=== PATIENT | male | born 1955 | race Caucasian/White ===

== ENCOUNTER 2017-03-07 08:18 | Emergency (ER) | payer BC ==
[~2017-03-07] VITALS: Ht 165.1 cm; Wt 72.6 kg
[~2017-03-07 08:18] MED LIST: FLOMAX0.4 MG PO; NORCO 5-325 TA1 EACH PO; PERCOCET 5-3251 EACH PO; PLAVIX75 MG PO; ZOFRAN ODT4 MG SL
[2017-03-07] MEDS ORDERED: SIMVASTATIN40 MG PO (10:13)
[2017-03-07] MEDS ORDERED: CETAPHIL1 EACH TOP (10:13)
[2017-03-07] MEDS ORDERED: METOPROLOL TART50 MG PO (10:13)
--- NOTE | 2017-03-07 11:45 | EKG ---
[facility] [address] [place], [place] [address] Signed Sinus rhythm with frequent premature ventricular complexes and premature atrial complexes Inferior infarct , age undetermined Anterior injury pattern ACUTE DC / STEMI Abnormal ECG No previous ECGs available Confirmed by ANKUR ISSA MD ([id number]) on 03/07/2017 11:44:59 AM Electronically Signed By: ANKUR ISSA MD 03/07/17 1145 PATIENT NAME: MARYSEYURY EBER Electrocardiogram DATE OF : 59 PHYSICIAN: ANKUR ISSA MD REPORT #: [id number] REPORT IS CONFIDENTIAL AND NOT TO BE RELEASED WITHOUT AUTHORIZATION
--- NOTE | 2017-03-07 12:20 | NUR ---
ER TEAM CALLED. I WAS IN HOUSE WITH SORT OPERATIONS SUPERVISORARMANI HANKINS. WE BOTH RESPONDED TO CALL. WE FOUND PT'S MATIAS, ALONG WITH SON ASHANTI ON PHONE TRYING TO REACH HIS BRO AT WORK. RIGHT BY PT'S SIDE, ALMOST GETTING IN WAY OF STAFF. ALL THE ER STAFF DID A GREAT JOB OF CARING FOR PT, AND ALLOWING HIS IN WITH THEM. SHE WAS NOT GOING TO LEAVE HIS SIDE, AND FOR US TO TRY WOULD HAVE CAUSED A SCENE. STAFF SEEMED TO SENSE THIS WELL. [facility] WAS ON THE WAY, SON ASHANTI SEEMED EVEN THOUGH IN [employer]HS[employer]OL CONTROLLING HIS EMOTIIONS. THIS APPEARED TO HELP HIS MOTHER. BRO. MARYCRUZ ARRIVED FROM , WAS EMOTIONAL AND UPSET AND ASKED WHAT WAS HAPPENING.MATIAS EXPLAINED, THE BOYS SAID THIS HAS HAPPENED BEFORE. I GAVE THEM A [employer] PACKING LIST, AND STAYED TO GIVE FURTHER ASSISTANCE. ER BACK GRAY CLOTH WASHER CAME AND PULLED MATIAS AWAY AND SAID SHE NEEDED A $250 CO-PAY. THIS WAS POOR TIMING, AND UPSET HER GREATLY WHEN HER IS BEING FLOWN TO ANOTHER HOSPITAL WITH LIFE THREATENING NEEDS. I WILL TALK TO [facility] REGARDING THIS. WAS ABLE TO FLY WITH PT, BOYS LEFT IMMEDIATELY TO GO AND GET THINGS FROM HOME AND HEAD TO [facility]. GOD BLESS THEM
--- NOTE | 2017-03-09 17:24 | EKG ---
[facility] [address] [facility] [place], [place] [address] Signed Sinus bradycardia Nonspecific ST abnormality Abnormal ECG No previous ECGs available Confirmed by ANKUR ISSA MD ([id number]) on 03/09/2017 5:23:58 PM Electronically Signed By: ANKUR ISSA MD 03/09/17 1724 PATIENT NAME: YURY SERRAN Electrocardiogram DATE OF : 59 PHYSICIAN: ANKUR ISSA MD REPORT #: [id number] REPORT IS CONFIDENTIAL AND NOT TO BE RELEASED WITHOUT AUTHORIZATION
== END 2017-03-07 09:15 | disposition short-term general hospital (02) ==
LOC: ED 08:18
DX: I21.3 ST elevation (STEMI) myocardial infarction of unspecified site (principal); Z87.442 Personal history of urinary calculi; I25.2 Old myocardial infarction; I10 Essential (primary) hypertension; Z95.5 Presence of coronary angioplasty implant and graft; Z79.899 Other long term (current) drug therapy
CPT/HCPCS: 71010; 80053; 84484; 85025; 93005; 93010; 96374; 96375; 99291; J1644; J2405; J7030

== ENCOUNTER 2018-06-28 09:13 | Day surgery (SDC) | payer BC ==
[~2018-06-28] VITALS: Ht 165.1 cm; Wt 73.9 kg
[~2018-06-28 09:13] MED LIST changes: +ASPIR-LOW81 MG PO; +CETAPHIL1 EACH TOP; +METOPROLOL TART50 MG PO; +NIACIN1000 MG PO; +SIMVASTATIN40 MG PO
--- NOTE | 2018-06-28 10:59 | NUR ---
06/28/18 [place]9 Christie Hayes 1053- PT INTO PACU. AWAKE WITH STIMULATION.
--- NOTE | 2018-06-29 08:42 | OR ---
[facility] [address] [place], [place] [address] Signed DATE OF OPERATION: 06/28/2018 SURGEON: Dougie Howell MD PREOPERATIVE DIAGNOSES: 1. Screening. 2. Diverticulosis. 3. Internal anal skin tags. POSTOPERATIVE DIAGNOSES: 1. Moderate sigmoid diverticulosis. 2. Pruritus ani. 3. Moderate internal anal skin tags x3. 4. Short colon length (80 cm). 5. Minimal external hemorrhoids. PROCEDURE PERFORMED: Colonoscopy without biopsy. ESTIMATED BLOOD LOSS: None. INDICATIONS: Richard is a 62-year-old gentleman, asked to see me for followup colonoscopy. In 2007, he had sigmoid diverticulosis along with some internal anal skin tags. He said he has never had trouble diverticulosis. He has no lower GI complaints. There is no family history of colon cancer or polyps. He did have 2 heart attacks since I have seen him last. He now has two cardiac stents. He maintains himself on aspirin and Plavix. He wanted to expedite his colonoscopy and he has only been off his aspirin and Plavix for a couple of days. He understands that he is at high risk for bleeding. I did review colonoscopy with him in the office. He understands the nature of the test along with the risks including, but not limited to gas bloating, crampy abdominal pain, bleeding, perforation, requiring surgery, and missed diagnosis. He also understands the need for IV conscious sedation. He had expressed understanding and wished to proceed. PROCEDURE NOTE: Richard was taken into our endoscopy suite and placed in the left lateral decubitus position. He was given 6 mg of Versed and 100 mcg of fentanyl to cover the case. 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 He has one that is Electronically Signed By: DOUGIE HOWELL MD 06/29/18 0842 PATIENT NAME: RICHARD SERRA OPERATIVE REPORT DATE OF : 59 REPORT #: [id number] PHYSICIAN: DOUGIE HOWELL MD PCP: FRANCIE PARR MD REPORT IS CONFIDENTIAL AND NOT TO BE RELEASED WITHOUT AUTHORIZATION [facility] [address] [place], [place] [address] Signed fairly dominant, could be considered a small hemorrhoid. He has good sphincter tone. His prostate is not overly enlarged, but it is a little indurated. The adult colonoscope was introduced and advanced all around into the cecum under direct visualization of camera without difficulty. Richard is 5 foot 5 inches at 163 pounds. We found that his colon is in proportion to his size and it is only 80 cm in length. It easily identified his appendiceal orifice along with the ileocecal valve. His prep was quite good. The scope was slowly withdrawn. We took multiple pictures for photodocumentation. Once again, we can see sigmoid diverticulosis. They are moderate in size, moderate in number, and scattered about. Once in the rectum, the scope had been retroflexed and he has very little in the way of internal hemorrhoid tissue, but he does have 3 moderate-sized internal anal skin tags. After this, the gas was suctioned out and the colonoscope removed. Richard tolerated the procedure quite well. RECOMMENDATIONS: Richard can follow up in 10 years for repeat colonoscopy. He asked that I not talk to his today. Dougie Howell MD [facility] /[id number] cc: MD Dougie Oneill MD Copies: FRANCIE PARR MD, ANDREW L MD ~ Electronically Signed By: DOUGIE HOWELL MD 06/29/18 0842 PATIENT NAME: RICHARD SERRA OPERATIVE REPORT DATE OF : 59 REPORT #: [id number] PHYSICIAN: DOUGIE HOWELL MD PCP: FRANCIE PARR MD REPORT IS CONFIDENTIAL AND NOT TO BE RELEASED WITHOUT AUTHORIZATION
== END 2018-06-28 11:40 | disposition home or self-care (01) ==
LOC: OPS 09:13 → DS 10:30 → OPS 11:40
PROVIDERS: Colon & Rectal Surgery
PROC: 0DJD8ZZ Inspection of Lower Intestinal Tract, Via Natural or Artificial Opening Endoscopic (ICD-10-PCS; principal; 2018-06-28 10:30)
DX: Z12.11 Encounter for screening for malignant neoplasm of colon (principal); K64.4 Residual hemorrhoidal skin tags; K57.30 Diverticulosis of large intestine without perforation or abscess without bleeding; I25.2 Old myocardial infarction; L29.0 Pruritus ani; Z79.02 Long term (current) use of antithrombotics/antiplatelets; Z79.82 Long term (current) use of aspirin; Z79.899 Other long term (current) drug therapy
CPT/HCPCS: 99153; G0500; J2250; J3010

== ENCOUNTER 2024-01-11 10:09 | Emergency (ER) | payer OTHER, MEDICARE ==
[~2024-01-11] VITALS: Ht 165.1 cm; Wt 79.9 kg
[~2024-01-11 10:09] MED LIST changes: +ONDANSETRON ODT4 MG PO
[2024-01-11 11:22] VITALS: BP 108/66
== END 2024-01-11 11:22 | disposition home or self-care (01) ==
LOC: ED 10:09
DX: S93.401A Sprain of unspecified ligament of right ankle, initial encounter (principal); I10 Essential (primary) hypertension; I25.2 Old myocardial infarction; W17.89XA Other fall from one level to another, initial encounter; Z79.899 Other long term (current) drug therapy; Z79.82 Long term (current) use of aspirin; Z79.02 Long term (current) use of antithrombotics/antiplatelets
CPT/HCPCS: 73610; 99283

== ENCOUNTER 2024-02-21 16:54 | Inpatient (IN) | payer OTHER, MEDICARE ==
[~2024-02-21] VITALS: Ht 165.1 cm; Wt 80.1 kg
[~2024-02-21 16:54] MED LIST changes: -ASPIR-LOW81 MG PO; +ASPIRIN EC325 MG PO
[2024-02-21] MEDS ORDERED: SODIUM CHLORIDE 0.9% 1,000 ML IV ONE (17:30)
[2024-02-21 17:33] LABS: BASOPHILS 0.3 % (0-2); HEMOGLOBIN 15.7 g/dL (12.0-18.0); LYMPHOCYTES 5.9 % (24-44); MCH 32.7 (27-36); MONOCYTES 7.5 % (0-12); NEUTROPHILS 86.3 % (39-80); PLATELET COUNT 235 K/uL (140-440); RBC 4.79 M/ul (4.3-5.7); RDW 13.3 (10.5-15.0)
[2024-02-21 17:43] LABS: ALBUMIN 3.8 g/dL (3.4-5.0); ALBUMIN/GLOBULIN RATIO 1.03 (1.1-2.4); ANION GAP 15.5 (7-21); BILIRUBIN, TOTAL 0.6 ng/dL (0.2-1.0); BUN/CREATININE RATIO 12.5 (6.0-28.6); CALCIUM 9.3 mg/dL (8.5-10.1); CREATININE, SERUM 1.12 mg/dL (0.70-1.30); POTASSIUM 3.5 mmol/L (3.5-5.1); PROTEIN, TOTAL 7.5 g/dL (6.4-8.2)
[2024-02-21] MEDS ORDERED: AMP/SULBACTAM SOD 3 GM in SODIUM CHLORIDE 0.9% 100 ML IV ONE (17:45)
[2024-02-21 18:37] LABS: BILIRUBIN, URINE NEGATIVE (negative); BLOOD/HGB, URINE NEGATIVE (Negative); KETONE, URINE NEGATIVE (Negative); LEUK ESTERASE, URINE NEGATIVE (negative); NITRITE, URINE NEGATIVE (negative)
[2024-02-21] MEDS ORDERED: HYDROmorphone HCL 1 MG/ML SYR IV PRN (19:15)
[2024-02-21] MEDS ORDERED: CIPROFLOXACIN/D5W 400 MG IV ONE (19:15)
[2024-02-21] MEDS ORDERED: ondansetron HCL 4 MG/2 ML VIAL IV PRN (19:45)
[2024-02-21] MEDS ORDERED: ACETAMINOPHEN 325 MG TAB PO PRN (19:45)
[2024-02-21] MEDS ORDERED: OXYCODONE HCL 5 MG TAB PO PRN (20:00)
[2024-02-21] MEDS ORDERED: DEXTROSE 5% 100 ML IV ONE (20:09)
[2024-02-21 20:28] VITALS: BP 148/79
--- NOTE | 2024-02-21 20:28 | NUR ---
REPORT RECEIVED FROM ED RN BRENNA IN ED, pt BELONGINGS AND pt TRANSFERRED VIA ED STRETCHER TO [facility] FLOOR ROOM #115, MATIAS ALSO AT BEDSIDE. pt A/OX4, VS COLLECTED. pt ON RA, RR EVEN AND UNLABORED. HR MILDLY TACHY IN LOW 100'S, TEMP 99.3. FRESH ICE WATER, NEW ICE PACK TO RIGHT EAR. EDEMA NOTED TO RIGHT EAR, RED AND WARM TO THE TOUCH. pt REPORTS BEING ELIM IRA-HEARING AID TO LEFT EAR STILL IN PLACE. IV SITES X2 WNL, FLUSHES EASILY AND SALINE LOCKED. IV ABX INFUSING DIRECTED AND PRN PAIN MEDICATION GIVEN FOR REPORTED 10/10 PAIN TO RIGHT EAR-SEE EMAR. REPORT GIVEN TO PRIMARY RN BETO, NOW IN ROOM. CALL LIGHT AND PERSONAL BELONGINGS IN REACH.
[2024-02-21] MEDS ORDERED: MELATONIN 3 MG TAB PO PRN (21:00)
[2024-02-21] MEDS ORDERED: CIPROFLOXACIN HCL/DEXAMETH 7.5 ML HOME.PACK OTIC SCH (21:00)
--- NOTE | 2024-02-21 21:16 | NUR ---
CALL LIGHT ANSWERED, pt ASKING ABOUT USING THE URINAL. PER PRIMARY RN, pt OKAY TO STAND ON HIS OWN AND VOID VIA URINAL. pt EDUCATED ON SAFETY AND TO USE CALL LIGHT AFTER VOIDING TO MEASURE OUTPUT, pt VERBALIZED UNDERSTANDING.
[2024-02-21] MEDS ORDERED: PIPERACILLIN/TAZOBACTAM 3.375 GM in DEXTROSE 5% 100 ML IV SCH (22:00)
[2024-02-21 22:18] VITALS: BP 148/79
--- NOTE | 2024-02-21 22:25 | NUR ---
ADMISSION ASSESSMENT COMPLETED. PT IS KNOWN TO THIS RN, FRIENDS FOR YEARS. PT IS OK HAVING THIS RN HIS NURSE. A/O, [place], WEARS HEARING AIDES LEELEE EARS. PINNA, EXTERNAL CANAL OPENING EDEMATOUS, RED HOT. R SIDE FACE RED AND WARM WELL. LIVES WITH HIS , IS RETIRED. 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 INDENDENT AT HOME, WILL BE SL AFTER ANTIBOTICS. WILL USE URINAL AT BEDSIDE. CALL LIGHT EXPLAINED AND STATES UNDERSTANDING.
--- NOTE | 2024-02-21 23:30 | NUR ---
ROUNDED ON PT, ON BACK, EYES CLOSED, RESP EVEN AN UNLABORED,
[2024-02-22] VITALS (7 sets, daily range): BP systolic 106–140; BP diastolic 63–75
--- NOTE | 2024-02-22 01:17 | NUR ---
CALL LIGHT ANSWERED. PT REQUESTING SOMETHING FOR PAIN. RN NOTIFED. HYDRAULIC BILLET MAKER OBTIANED AND DOCUMENTED VITALS AND I&O. PT ICE WATER REFILLED. PT STATES NO FURTHER NEEDS AT THIS TIME. CALL LIGHT WITHIN REACH AND RN REMAINS IN ROOM.
--- NOTE | 2024-02-22 01:25 | NUR ---
PT COMPLAINS OF 8/10 PAIN RIGHT EAR. STATES THAT THE PAIN WOKE HIM UP, WELL THE PAIN THAT SHOOTS THROUGH HIS RIGHT FOOT, TOE, BURNING STABING LIKE PAIN. FEELS THAT IT IS RELATED TO HIS EAR INFECTION SINCE IT HAS COME ON AFTER. IV PRN MEDICATION ADMINISTERED, WELL FRESH ICE WATER. WELL HEAD PUMPER DID VS, I/O.
--- NOTE | 2024-02-22 02:10 | NUR ---
ROUNDED ON PT, EYES CLOSED, RESP EVEN AND UNLABORED.
--- NOTE | 2024-02-22 04:00 | NUR ---
ROUNDED ON PT. PT WITH EYES CLOSED, RESP EVEN UNLABORED, OCCASSIONAL MOVEMENT OF RIGHT FOOT. NO URINE IN URNIAL.
[2024-02-22 05:25] LABS: BASOPHILS 0.5 % (0-2); EOSINOPHILS 0.3 % (0-6); HEMATOCRIT 42.7 % (35.0-50.0); HEMOGLOBIN 14.5 g/dL (12.0-18.0); LYMPHOCYTES 7.8 % (24-44); MCH 32.6 (27-36); MCHC 33.9 g/dl (30-36); MCV 96.1 fl (81-99); NEUTROPHILS 81.4 % (39-80); PLATELET COUNT 206 K/uL (140-440); RBC 4.45 M/ul (4.3-5.7); RDW 13.5 (10.5-15.0)
--- NOTE | 2024-02-22 05:34 | NUR ---
PT ADMITTED DUE RIGHT EAR INFECTION. EAR HAS REMAINED UNCHANGED, EDEMATOUS OUTER EAR TO INNER EAR, WITH SMALL EAR OPENING. FACE RED, SL SWOLLEN WELL. PT A/O, INDEPENDENT WITH CARES. RECEIVED PAIN MEDICATION THIS SHIFT, USES THE URINAL INDEPENDENTLY, IS ON RA. USES CALL LIGHT, IS CHITIMACHA WITHOUT HIS HEARING AIDE, IS NOT WEARING THE RIGHT ONE.
[2024-02-22 05:35] LABS: ANION GAP 12.3 (7-21); BUN/CREATININE RATIO 9.57 (6.0-28.6); CALCIUM 8.4 mg/dL (8.5-10.1); CREATININE, SERUM 0.94 mg/dL (0.70-1.30); MAGNESIUM 1.7 mg/dL (1.8-2.4); POTASSIUM 3.3 mmol/L (3.5-5.1)
--- NOTE | 2024-02-22 05:51 | NUR ---
SHINGLES ROOFER AND RN OBTAINED VITALS AND I&O. RN REMAINS IN ROOM. CALL LIGHT WITHIN REACH.
--- NOTE | 2024-02-22 06:09 | NUR ---
TYLENOL GIVEN FOR TEMP 100.1, PAIN OF 7/10. PT REPORTED FEELING LIKE HIS FACE IS MORE SWOLLEN, WHICH INDEED IT IS. RIGHT EYE WAS NEARLY SWOLLEN SHUT, COMPARED TO ADMISSION, WITH SL INDURATION ON FOREHEAD WELLING DROPS DOWN ON TO FACE. DENIES AN INCREASE IN PAIN. THINKS THE PAIN ALONG THE JAW IS BETTER, HE RUBS HIS HAND ALONG IT. DENIES ANY SWALLOWING DIFFICULTIES.
[2024-02-22] MEDS ORDERED: POTASSIUM CHLORIDE 10 MEQ TABCR PO ONE (06:45)
[2024-02-22] MEDS ORDERED: MAGNESIUM SULFATE 2 GM/50 ML BAG IV ONE (06:45)
--- NOTE | 2024-02-22 07:14 | NUR ---
Pt report received from MENA Peng. Pt is asleep, supine in bed, breathing is regular, even, and non-labored. White board updated. Pt has ice pack to right side of head/ear. Call light in reach.
--- NOTE | 2024-02-22 07:58 | NUR ---
PATIENT IN BED AT THIS TIME. CALL LIGHT WITHIN REACH, NO FURTHER NEEDS AT THIS TIME.
[2024-02-22] MEDS ORDERED: AMOX TR-K CLV1 EAC1 PO (08:28)
[2024-02-22] MEDS ORDERED: ASPIRIN 81 MG TABEC PO SCH (09:00)
[2024-02-22] MEDS ORDERED: METOPROLOL TARTRATE 50 MG TAB PO SCH (09:00)
[2024-02-22] MEDS ORDERED: CIPROFLOXACIN/D5W 400 MG IV SCH (09:00)
[2024-02-22] MEDS ORDERED: CLOPIDOGREL BISULFATE 75 MG TAB PO SCH (09:00)
[2024-02-22] MEDS ORDERED: ENOXAPARIN SODIUM 40 MG/0.4 ML SYR SUB-Q SCH (09:00)
[2024-02-22] MEDS ORDERED: POTASSIUM CHLORIDE 10 MEQ TABCR ONE (09:08)
[2024-02-22] MEDS ORDERED: MAGNESIUM SULFATE 50 ML IV ONE (09:08)
--- NOTE | 2024-02-22 09:14 | NUR ---
UR CLINICAL REVIEW: [facility] [place] OBSERVATION CRITERIA FOR CELLULITIS [facility]- TRADITIONAL OBS 02/21/24 @ 1942 ORDER MATCHES STATUS AUTH PENDING, WILL SEND CLINICALS, IF REQUESTED, VIA [facility]. PLAN TO DC TO HOME WHEN STABLE. 02/23/24
--- NOTE | 2024-02-22 09:30 | NUR ---
Dr. Cobos requested he be notified when the pt leaves a urine sample.
[2024-02-22] MEDS ORDERED: DESOXIMETASONE15 G2 TOP (09:50)
--- NOTE | 2024-02-22 09:51 | NUR ---
MED REC COMPLETE
--- NOTE | 2024-02-22 10:10 | NUR ---
PT NOT AVAILABLE FOR VISIT. PROVIDED PRAYER.
--- NOTE | 2024-02-22 10:57 | NUR ---
In with pt for hourly rounding. Pt is resting, supine, in bed with ice pack over his eyes. Breathing is regular, even, and non-labored. IVF infusion is complete. No urine specimen as of this time. Call light in reach. IV Site flushed, patent, s/l.
[2024-02-22] MEDS ORDERED: SODIUM CHLORIDE 0.9% 500 ML IV PRN (11:15)
[2024-02-22] MEDS ORDERED: ondansetron HCL 4 MG/2 ML VIAL IV PRN (11:30)
[2024-02-22] MEDS ORDERED: PHARMACY RENAL DOSE ADJUSTMENT 1 DOSE MISC PO SCH (12:00)
[2024-02-22] MEDS ORDERED: CEPHALEXIN MONOHYDRATE 500 MG CAP PO SCH (13:00)
--- NOTE | 2024-02-22 13:00 | NUR ---
Spoke with Pt and his . They deny needs. Pt does not use any DME. denies needs and will assist pt with shopping, cooking, household tasks. They do not have any financial issues. Pt is hard of hearing and cannot hear with out his hearing aids. His face is swollen and painful. Pt has his answer question as his hearing aid are charging. He requests she answer all questions.
--- NOTE | 2024-02-22 13:27 | NUR ---
PATIENT IN BED AT THIS TIME. [facility] PROVIDED PATIENT WITH HOT PACKPER PATIENTS REQUESTED. CALL LIGHT WITHIN REACH, NO FURTHER BEEDS AT THIS TIME.
[2024-02-22] MEDS ORDERED: PIPERACILLIN/TAZOBACTAM 3.375 GM in DEXTROSE 5% 100 ML IV SCH (14:00)
--- NOTE | 2024-02-22 14:55 | NUR ---
In pt room for IV pump alarming, pt is asleep, breathing is regular, even, and non-labored, ice pack on pt's right ear. IV bolus is complete. IV S/L at this time. Call light in reach.
--- NOTE | 2024-02-22 15:16 | NUR ---
PATIENT IN BED AT THIS TIME. CALL LIGHT WITHIN REACH, NO FURTHER NEEDS AT THIS TIME.
[2024-02-22 17:29] LABS: ANION GAP 11.5 (7-21); BUN/CREATININE RATIO 12.24 (6.0-28.6); CREATININE, SERUM 0.98 mg/dL (0.70-1.30); POTASSIUM 4.5 mmol/L (3.5-5.1)
--- NOTE | 2024-02-22 18:30 | NUR ---
PATIENT IN BED AT THIS TIME. VITALS AND I&O'S CHARTED. CALL LIGHT WITHIN REACH, NO FURTHER NEEDS AT THIS TIME.
--- NOTE | 2024-02-22 18:47 | NUR ---
In with pt for P.M. pain med administration per emar. Pt's at bedside. Pt is pleasant, reports pain is still 5 out of 10, feels swelling has increased underneath his eye and his states she thinks it has stopped increasing. Pt states that maybe he scratched his ear on the inside because he has a habit of taking his hearing aid out when it starts to itch his ear and using his fingernail to scratch it. Pt denies any needs at this time. Call light in reach.
--- NOTE | 2024-02-22 19:10 | NUR ---
REPORT RECEIVED FROM ROYER SAN. pt RESTING IN THE BED. ICE PACK PROVIDED. BOARD UPDATED. CALL LIGHT WITHIN REACH
--- NOTE | 2024-02-22 21:05 | NUR ---
SALES PROGRAM COORDINATOR OBTAINED VITALS AND INTAKE NO NEW OUTPUT AT THIS TIME CALL LIGHT WITHIN REACH.
--- NOTE | 2024-02-22 21:35 | NUR ---
ASSESSMENT DONE. IV X2 ASSESSED, WNL. IV ABX INFUSING PER ORDER, SEE MAR. SCHEDULED MEDS ADMINISTERED. pt DENIES ANY OTHER NEEDS AT THIS TIME. CALL LIGHT WITHIN REACH.
--- NOTE | 2024-02-22 23:22 | NUR ---
pt SITTING AT EDGE OF BED USING URINAL. NO OTHER NEEDS AT THIS TIME. CALL LIGHT WITHIN REACH.
[2024-02-23] VITALS (7 sets, daily range): BP systolic 97–116; BP diastolic 62–75
--- NOTE | 2024-02-23 02:05 | NUR ---
pt CALLED FOR IV PUMP ALARMING. PRN PAIN MEDICATION ADMINISTERED FOR 12/26 PAIN. pt DENIES ANY OTHER NEEDS AT THIS TIME. WATER REFRESHED. URINAL EMPTIED.
--- NOTE | 2024-02-23 04:37 | NUR ---
pt RESTING IN THE BED WITH EYES CLOSED. RR EVEN AND UNLABORED. CALL LIGHT WITHIN REACH. URINAL EMPTIED.
[2024-02-23 05:04] LABS: URINE OSMOLALITY 600 mOsm/kg (50-800)
[2024-02-23 05:24] LABS: BASOPHILS 0.3 % (0-2); EOSINOPHILS 0.9 % (0-6); HEMATOCRIT 41.1 % (35.0-50.0); HEMOGLOBIN 14.1 g/dL (12.0-18.0); LYMPHOCYTES 15.5 % (24-44); MCHC 34.3 g/dl (30-36); MCV 96.1 fl (81-99); MONOCYTES 12.6 % (0-12); NEUTROPHILS 70.7 % (39-80); PLATELET COUNT 202 K/uL (140-440); RBC 4.27 M/ul (4.3-5.7); RDW 13.5 (10.5-15.0)
[2024-02-23 05:38] LABS: ANION GAP 12.7 (7-21); BUN/CREATININE RATIO 10.47 (6.0-28.6); CALCIUM 8.6 mg/dL (8.5-10.1); CREATININE, SERUM 1.05 mg/dL (0.70-1.30); MAGNESIUM 2.2 mg/dL (1.8-2.4); POTASSIUM 3.7 mmol/L (3.5-5.1)
--- NOTE | 2024-02-23 06:06 | NUR ---
pt RESTED THROUGH OUT THE NIGHT. PRN PAIN MEDICATION ADMINISTERED WHEN NEEDED. IV ABX INFUSING PER ORDER, SEE MAR.
--- NOTE | 2024-02-23 07:10 | NUR ---
Pt report received from MENA Mcneil. Pt is asleep, supine in bed, breathing regular, even, and non-labored. Call light in reach. White board updated.
--- NOTE | 2024-02-23 08:30 | NUR ---
Pt was discussed in 8:[address] Cobos. feels pts infection and redness on his face has increased in size. He discussed with pharmacy and plans to change antibiotic to Daptomycin today. I spoke with Richard. His face has been marked showing reddened area. He does agree the area is harder now. He would like to discharge as he wants to return to work at [employer]. He then tells me had a discussion with him about the severity of this type of infection. He will do what he needs to do. His next job doesn't start unti the Feb. I discussed with him, it is not a good idea to discharge until his infection shows improvement. Pt agrees. No plan for dc today.
--- NOTE | 2024-02-23 08:30 | NUR ---
Pt was discussed in 8:30 meeting. feels swelling and reddness have increased and hardened on pts R face. Area is now marked. discussed with pharmacy changing pt antibiotic. 1030 Spoke with Richard. He states he feels better. He wants to discharge so he can return to [employer]. He does state discussed the seriousness of his infection with him. He is willing to stay until he shows improvement. He denies any needs. No plan for dc today.
--- NOTE | 2024-02-23 10:05 | NUR ---
In with pt for assessment. Pt is resting in bed, eyes closed, breathing regular, even, and non-labored, with ice pack to the right side of his face/ear. Pt opens his eyes to noises. Pt reports his pain is 7 out of 10 currently and requested pain meds. Pt states that his face doesn't hurt as much as it was yesterday and that he feels like it feels better. I noted that the redness isn't as angry-looking as it was yesterday and it appears as though some of it has receded on the forehead from yesterday. Edges were marked with skin marker per Dr. Cobos's request. When administering the ear drops, I noted the tragus was less swollen than yesterday, allowing me easier access to the ear canal to administer the drops. Pt denies any needs at this time. Side rails up, call light and bedside table in reach.
--- NOTE | 2024-02-23 13:33 | NUR ---
Received a fax from [facility] requesting clinicals a deadline of 02/23/24 at 4:10. Chart copied and faxed to [phone] as UR is not available today.
--- NOTE | 2024-02-23 16:09 | NUR ---
PATIENT IN BED AT THIS TIME. ASSOCIATE ACCOUNT MANAGER WALKED WITH PATIENT ONE LAP AROUND HALLS. PATIENT WANTED TO GO BACK TO BED. CALL LIGHT WITHIN REACH, NO FURTHER NEEDS AT THIS TIME.
--- NOTE | 2024-02-23 16:18 | EKG ---
[facility] [address] [place], [place] [address] Signed Normal sinus rhythm Anteroseptal infarct , age undetermined Abnormal ECG No previous ECGs available Confirmed by Андрей Cobos MD ([id number]) on 02/23/2024 4:18:09 PM Electronically Signed By: АНДРЕЙ COBOS MD 02/23/24 1618 PATIENT NAME: YURY SERRA EBER Electrocardiogram DATE OF : 59 PHYSICIAN: АНДРЕЙ COBOS MD REPORT #: [id number] REPORT IS CONFIDENTIAL AND NOT TO BE RELEASED WITHOUT AUTHORIZATION
--- NOTE | 2024-02-23 21:15 | NUR ---
ASSESSMENT AND VITAL SIGNS DONE. REDNESS WITHIN BOUNDRIES. SCHEDULED MEDICATIONS ADMINISTERED. pt DENIES ANY OTHER NEEDS AT THIS TIME. IV ASSESSED, WNL. pt DENIES ANY NEEDS AT THIS TIME. CALL LIGHT WITHIN REACH.
--- NOTE | 2024-02-23 22:53 | NUR ---
pt RESTING IN THE BED WITH EYES CLOSED. RR EVEN AND UNLABORED. CALL LIGHT WITHIN REACH.
--- NOTE | 2024-02-23 23:24 | NUR ---
PT WALKING LAPS IN BROCK. STOPS AT RN STATION, STATES HE WOULD LIKE A PAIN PILL. INDEX CLERK TO ROOM. PT RATES PAIN 6/10 TO R EAR. PRN ADMINISTERED. SEE EMAR. PT DENIES FURTHER NEEDS AT THIS TIME. CALL LIGHT IN REACH.
[2024-02-24] VITALS (10 sets, daily range): BP systolic 111–134; BP diastolic 66–81
--- NOTE | 2024-02-24 01:27 | NUR ---
pt RESTING IN THE BED WITH EYES CLOSED. RR EVEN AND UNLABORED. CALL LIGHT WITHIN REACH.
--- NOTE | 2024-02-24 03:11 | NUR ---
pt RESTING IN THE BED WITH EYES CLOSED. RR EVEN AND UNLABORED. CALL LIGHT WITHIN REACH.
[2024-02-24 05:12] LABS: BASOPHILS 0.5 % (0-2); EOSINOPHILS 2.2 % (0-6); HEMATOCRIT 41.9 % (35.0-50.0); HEMOGLOBIN 14.5 g/dL (12.0-18.0); LYMPHOCYTES 16.6 % (24-44); MCH 33.5 (27-36); MCHC 34.6 g/dl (30-36); MCV 96.7 fl (81-99); MONOCYTES 12.2 % (0-12); NEUTROPHILS 68.5 % (39-80); PLATELET COUNT 222 K/uL (140-440); RBC 4.33 M/ul (4.3-5.7); RDW 13.4 (10.5-15.0)
[2024-02-24 05:27] LABS: ANION GAP 9.4 (7-21); BUN/CREATININE RATIO 13.46 (6.0-28.6); CALCIUM 8.9 mg/dL (8.5-10.1); CREATININE, SERUM 1.04 mg/dL (0.70-1.30); MAGNESIUM 2.1 mg/dL (1.8-2.4); POTASSIUM 4.4 mmol/L (3.5-5.1)
--- NOTE | 2024-02-24 06:03 | NUR ---
pt RESTED THROUGOUT THE NIGHT. pt INDEPENDENT IN THE RM. IV ABX INFUSED PER ORDER, SEE MAR. REDNESS ON FACE WITHIN BOUNDRIES.
--- NOTE | 2024-02-24 07:03 | NUR ---
REPORT RECEIVED FROM METALLURGICAL TECHNICIAN MENA MITCHELL. PATIENT IS LYING IN BED WITH EYES CLOSED AND RESPIRATIONS ARE EVEN AND UNLABORED. CALL LIGHT AND PERSONAL BELONGINGS ARE WITHIN REACH.
[2024-02-24] MEDS ORDERED: DAPTOmycin 500 MG/10 ML VIAL IV SCH (09:00)
--- NOTE | 2024-02-24 09:04 | NUR ---
0900 MEDICATIONS ADMINISTERED PER THE EMAR. VITAL SIGNS TAKEN AND DOCUMENTED IN THE CHART. PATIENT IS LYING IN BED ALERT AND CALM. DINNER TRAY REMOVED FROM THE PATIENTS ROOM AT THIS TIME. PATIENT STATED NO FURTHER NEEDS. CALL LIGHT AND PERSONAL BELONGINGS ARE WITHIN REACH.
--- NOTE | 2024-02-24 09:40 | NUR ---
PATIENT IS LYING IN BED WITH EYES CLOSED AND RESPIRATIONS ARE EVEN AND UNLABORED. CALL LIGHT AND PERSONAL BELONGINGS ARE WITHIN REACH.
--- NOTE | 2024-02-24 10:33 | NUR ---
FULL ASSESSMENT COMPLETE AND DOCUMENTED IN THE CHART. PATIENT IS ALERT AND ORIENTED TIMES FOUR. PATIENT IS HARD OF HEARING WITH HIS HEARING AIDS AT THE BEDSIDE. PATIENT IS INDEPENDENT IN THE ROOM. PATIENT IS ON ROOM AIR AND LUNG SOUNDS ARE CLEAR BILATERALLY. CARDIAC WITH NORMAL S1 AND S2 ON AUSCULTATION. RADIAL PULSES ARE STRONG BILATERALLY. SENSATION INTACT WITH NO COMPLAINTS OF NUMBNESS AND TINGLING. PATIENT IS ON A REGULAR DIET AND BOWEL TONES ARE ACTIVE IN ALL FOUR QUADRANTS. PATIENT LAST BOWEL MOVEMENT WAS 02/23/24. IV SITE FLUSHED WITH 10 ML NORMAL SALINE AND IS SALINE LOCKED. ZOSYN INFUSION COMPLETE. IV DRESSING IS CLEAN, DRY, AND INTACT. PATIENT WITH PAIN RATED 6/10 ON THE RIGHT SIDE OF THE FACE AND IS REQUESTING PAIN MEDICATION AT THIS TIME. SKIN WITH PEELING, REDNESS, AND SWELLING ON THE RIGHT SIDE OF THE PATIENTS FACE AND FOREHEAD. PATIENT STATED NO FURTHER NEEDS AT THIS TIME. CALL LIGHT AND PERSONAL BELONGINGS ARE WITHIN REACH.
--- NOTE | 2024-02-24 10:55 | NUR ---
PATIENT WITH PAIN RATED 6/10 ON THE RIGHT SIDE OF THE FACE. PRN OXYCODONE ADMINSITERED AT THIS TIME. NEW CUP OF ICE WATER AND ICE PACK GIVEN TO THE PATIENT AT THIS TIME. PATIENT STATED NO FURTHER NEEDS AT THIS TIME. CALL LIGHT AND PERSONAL BELONGINGS ARE WITHIN REACH.
--- NOTE | 2024-02-24 11:06 | NUR ---
DID HRLY ROUNDING ON PT AND PT IS NAPPING RIP LIGHT IS WITHIN REACH.
--- NOTE | 2024-02-24 11:38 | NUR ---
PATIENT IS LYING ON THEIR LEFT SIDE WITH EYES CLOSED AND RESPIRATIONS ARE EVEN AND UNLABORED. PATIENT WITH THE ICE PACK ON THE RIGHT SIDE OF THE FACE. PATIENT STATED NO FURTHER NEEDS AT THIS TIME. CALL LIGHT AND PERSONAL BELONGINGS ARE WITHIN REACH.
--- NOTE | 2024-02-24 12:12 | NUR ---
PATIENT IS SITTING ON THE COUCH WITH HIS GRANDSON. WHEN ASKED BY RN PATIENT STATES HIS PAIN IS 5/10 ON THE RIGHT SIDE OF THE FACE. PATIENT STATED NO FURTHER NEEDS AT THIS TIME. CALL LIGHT AND PERSONAL BELONGINGS ARE WITHIN REACH.
--- NOTE | 2024-02-24 14:11 | NUR ---
PATIENT IS LYING IN BED WITH EYES CLOSED AND RESPIRATIONS ARE EVEN AND UNLABORED. ZOSYN INFUSION IS GOING AT 25 ML/HR. PATIENT STATED NO NEEDS AT THIS TIME. CALL LIGHT AND PERSONAL BELONGINGS ARE WITHIN REACH.
--- NOTE | 2024-02-24 14:51 | NUR ---
PATIENT IS LYING IN BED ON THEIR LEFT SIDE WITH EYES CLOSED AND RESPIRATIONS ARE EVEN AND UNLABORED. PATIENT RATED PAIN "ABOUT A 2" OUT OF 10 WHEN ASKED BY RN. PAIN IS LOCATED ON THE RIGHT SIDE OF FACE AND THE FOREHEAD. PATIENT IS NOT REQUESTING PAIN MEDICATION AT THIS TIME. RIGHT SIDE OF FACE IS RED, WARM, PEELING, AND SWOLLEN. IV SITE WITH ZOSYN INFUSING AT 25 ML/HR. IV SITE IS CLEAN, DRY, AND INTACT. PATIENT STATED NO NEEDS AT THIS TIME. CALL LIGHT AND PERSONAL BELONGINGS ARE WITHIN REACH.
--- NOTE | 2024-02-24 15:20 | NUR ---
PATIENT IS LYING IN BED ON THEIR LEFT SIDE WITH EYES CLOSED AND RESPIRATIONS ARE EVEN AND UNLABORED. CALL LIGHT AND PERSONAL BELONGINGS ARE WITHIN REACH.
--- NOTE | 2024-02-24 16:15 | NUR ---
PATIENT IS LYING IN BED WITH HOB ELEVATED. PATIENT IS SPEAKING WITH A VISITOR SITTING IN A CHAIR AT BEDSIDE. CALL LIGHT AND PERSONAL BELONGINGS ARE WITHIN REACH.
--- NOTE | 2024-02-24 17:21 | NUR ---
PATIENT IS SITTING UPRIGHT IN BED WITH EYES OPEN AND RESPIRATIONS ARE EVEN AND UNLABORED. VITAL SIGNS TAKEN AND DOCUMENTED IN THE CHART. INTAKE AND OUTPUT VALUES DOCUMENTED. IV PUMP INFUSION VALUE CLEARED. PATIENT DOES NOT WANT AN ICE PACK AT THIS TIME WHEN ASKED BY RN. PATIENT RATED PAIN 5/10 IN THE RIGHT SIDE OF THE FACE. PATIENT IS NOT REQUESTING PAIN MEDICATION AT THIS TIME. DINNER TRAY REMOVED AT THIS TIME PER PATIENT REQUEST. PATIENT STATED NO FURTHER NEEDS. CALL LIGHT AND PERSONAL BELONGINGS ARE WITHIN REACH.
--- NOTE | 2024-02-24 18:05 | NUR ---
PATIENT WITH CONCERNS ABOUT THEIR IV SITE IN THE RAC LEAKING. RN FLUSHED THE IV SITE AND CHANGED THE IV DRESSING. NO LEAKING OBSERVED BY RN AT THIS TIME. PATIENT STATED NO FURTHER NEEDS AT THIS TIME. CALL LIGHT AND PERSONAL BELONGINGS ARE WITHIN REACH.
--- NOTE | 2024-02-24 19:32 | NUR ---
PATIENT SITTING UP AT SIDE OF BED, ROUNDING IN ROOM..PATIENT ALERT AND ORIENTED, WHEN DISCUSSED PAIN MANAGEMENT HE SAID HE WOULD LIKE PAIN MEDICATION WITH MEDICATION PASS AND ICE PACK. NOTED IV FLUSHED, NOTED SMALL AMOUNT OF LEAK.
--- NOTE | 2024-02-24 21:47 | NUR ---
PATIENT AMBULATED IN HALLS THEN BACK TO ROOM FOR ABX EAR DROPS AND IV ABX TO INFUSE. HE RPEORTS PAIN IS MILD, PAIN IS BEETER AFTER PAIN MEDICATIONS. HE IS ALERT AND ORIENTED, HE REPORTS HE HOPES TO GET TO GO HOME TOMORROW. HE REPORTS NO FURTHER NEEDS.
[2024-02-25] VITALS (7 sets, daily range): BP systolic 109–131; BP diastolic 66–87
[2024-02-25 05:24] LABS: BASOPHILS 0.8 % (0-2); EOSINOPHILS 3.1 % (0-6); HEMATOCRIT 43.4 % (35.0-50.0); HEMOGLOBIN 14.9 g/dL (12.0-18.0); LYMPHOCYTES 23.3 % (24-44); MCH 32.8 (27-36); MCHC 34.3 g/dl (30-36); MCV 95.8 fl (81-99); MONOCYTES 11.9 % (0-12); NEUTROPHILS 60.9 % (39-80); PLATELET COUNT 254 K/uL (140-440); RBC 4.53 M/ul (4.3-5.7); RDW 13.6 (10.5-15.0)
[2024-02-25 05:38] LABS: ANION GAP 12.2 (7-21); BUN/CREATININE RATIO 17.02 (6.0-28.6); CALCIUM 9.4 mg/dL (8.5-10.1); CREATININE, SERUM 0.94 mg/dL (0.70-1.30); MAGNESIUM 2.3 mg/dL (1.8-2.4); POTASSIUM 4.2 mmol/L (3.5-5.1)
--- NOTE | 2024-02-25 06:24 | NUR ---
PATIENT WALKED IN HALLS AT START OF SHIFT. HE REQUESTED PAIN MEDICATION AT HS, HE HAS DENIED ANY NEEDS SINCE. HE HAS VOIDED 1300ML URINE OUT. ICE PACKS PROVIDED FOR PAIN AND SWELLING/INFLAMMATION. HE HAS BEEN ALERT AND ORIENTED OVER SHIFT. AFEBRILE.
--- NOTE | 2024-02-25 06:31 | NUR ---
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
--- NOTE | 2024-02-25 07:17 | NUR ---
Pt report received from MENA Brewer. Pt is awake, standing, in his room, A&O. Pt reports his pain is about 3 out of 10 at this time in the right side of his face. He states that he feels much better and feels it's not as swollen. Assessment of the right side of his face reveals less "angry" redness, some skin flaking (dry skin), less swelling, more prominent forehead wrinkles than I noted on Monday. Pt denies needs at this time. Call light in reach. White board updated.
--- NOTE | 2024-02-25 19:36 | NUR ---
REPORT RECEIVED FROM DAY SHIFT RN. PT LYING IN BED ALERT AND ORIENTED. WARM BLANKET PROVIDED. NO FURTHER NEEDS. WHITE BOARD UPDATED. CALL LIGHT IN REACH.
--- NOTE | 2024-02-25 21:27 | NUR ---
EVENING ASSESSMENT COMPLETE. SCHEDULED MEDS ADMIN PER EMAR. PT REPORTS RIGHT SIDE FACE PAIN 07/29. PRN FOR PAIN ADMIN PER EMAR. REDNESS AND SWELLING ON RIGHT SIDE OF FACE NOTED. PT REPORTS SX MUCH IMPROVED SINCE ADMISSION. IV ABX INFUSING PER ORDER. VS AND I&O OBTAINED. PT DENIES QUESTIONS OR CONCERNS. CALL LIGHT IN REACH.
--- NOTE | 2024-02-26 00:55 | NUR ---
PT RESTING IN BED WITH EYES CLOSED. RESPIRATIONS EVEN. CALL LIGHT IN REACH.
--- NOTE | 2024-02-26 02:04 | NUR ---
IV PUMP ALARMING. ISSUE RESOLVED. PT UP TO BR TO VOID INDEPENDENTLY. URINAL EMPTIED. BACK TO BED. DENIES PAIN. NO NEEDS AT THIS TIME. CALL LIGHT IN REACH.
--- NOTE | 2024-02-26 03:53 | NUR ---
PT RESTING IN BED WITH EYES CLOSED. RESPIRATIONS EVEN. CALL LIGHT IN REACH.
[2024-02-26 06:06] VITALS: BP 112/66
--- NOTE | 2024-02-26 06:23 | NUR ---
PT RESTING WITH EYES CLOSED. AWAKENS EASILY. VS AND I&O OBTAINED. PT DENIES PAIN OR NAUSEA. RIGHT SIDE FACIAL EDEMA/REDNESS NOTED. MENU PROVIDED. PT DENIES FURTHER NEEDS. CALL LIGHT IN REACH.
[2024-02-26 06:34] VITALS: BP 112/66
--- NOTE | 2024-02-26 08:03 | NUR ---
Board has been updated and call light has been placed within reach. No request from patient at this time
--- NOTE | 2024-02-26 08:10 | NUR ---
UR CLINICAL/CONCURRENT REVIEW: [facility] [place]- MEETS INPATIENT CRITERIA 02/23/24 FOR CELLULITIS [facility] OBS TO INPT 02/23/24 WILL SEND UPDATED CLINICALS FOR AUTH DISCHARGE TO HOME WHEN STABLE CONCURRENT REVIEW COMPLETED 02/26/24-MEETS CRITERIA FOR DC, WILL UPDATE MD 02/29/24
[2024-02-26 08:26] VITALS: BP 134/81
--- NOTE | 2024-02-26 09:46 | NUR ---
PT NOT AVAILABLE FOR VISIT. PROVIDED PRAYER.
--- NOTE | 2024-02-26 10:56 | NUR ---
I walked with patient around the nurse station four laps around, patient then sat in recliner. I gave patient a popsicle and a warm blanket. No further request from patient at this time
--- NOTE | 2024-02-26 13:13 | NUR ---
THE PATIENT WAS UP IN THE SHOWER WHEN DC PASTER OPERATOR TRIED TO DISCUSS THE DC PLAN. THE ASH CONVEYOR OPERATOR WILL RETURN LATER TODAY. PER MD THE PATIENT WILL GO HOME IN 1-2 DAYS.
[2024-02-26 13:14] VITALS: BP 98/64
--- NOTE | 2024-02-26 14:53 | NUR ---
IV ZOSYN INFUSING FOR 4 HOURS.
[2024-02-26 17:57] VITALS: BP 115/77
--- NOTE | 2024-02-26 19:40 | NUR ---
REPORT RECEIVED FROM DAY SHIFT RN. PT LYING IN BED ALERT AND ORIENTED. DENIES NEEDS. WHITE BOARD UPDATED. CALL LIGHT IN REACH.
[2024-02-26 20:34] VITALS: BP 121/75
--- NOTE | 2024-02-26 21:54 | NUR ---
EVENING ASSESSMENT COMPLETE. SCHEDULED MEDS ADMIN PER EMAR. PT REPORTS RIGHT SIDE FACE PAIN /10. PRN FOR PAIN ADMIN PER ORDER. RIGHT SIDE FACIAL EDEMA AND REDNESS NOTED. PT DENIES QUESTIONS OR CONCERNS. CALL LIGHT IN REACH.
--- NOTE | 2024-02-26 23:46 | NUR ---
PT RESTING IN BED WITH EYES CLOSED. RESPIRATIONS EVEN. CALL LIGHT IN REACH.
[2024-02-27] VITALS (10 sets, daily range): BP systolic 103–130; BP diastolic 64–80
--- NOTE | 2024-02-27 01:45 | NUR ---
PT IN BED WITH EYES CLOSED. RESPIRATIONS EVEN. IV ABX INFUSING PER ORDER CALL LIGHT IN REACH.
--- NOTE | 2024-02-27 03:41 | NUR ---
PT RESTING IN BED WITH EYES CLOSED. RESPIRATIONS EVEN. CALL LIGHT IN REACH.
[2024-02-27 05:31] LABS: BASOPHILS 0.6 % (0-2); EOSINOPHILS 2.9 % (0-6); HEMATOCRIT 43.7 % (35.0-50.0); HEMOGLOBIN 14.7 g/dL (12.0-18.0); LYMPHOCYTES 22.4 % (24-44); MCH 32.6 (27-36); MCHC 33.6 g/dl (30-36); MCV 97.2 fl (81-99); MONOCYTES 9.8 % (0-12); NEUTROPHILS 64.3 % (39-80); PLATELET COUNT 302 K/uL (140-440); RDW 13.3 (10.5-15.0)
[2024-02-27 05:46] LABS: ALBUMIN 3.1 g/dL (3.4-5.0); ALBUMIN/GLOBULIN RATIO 0.89 (1.1-2.4); ANION GAP 10.3 (7-21); BILIRUBIN, TOTAL 0.4 ng/dL (0.2-1.0); BUN/CREATININE RATIO 17.69 (6.0-28.6); CALCIUM 9.2 mg/dL (8.5-10.1); CREATININE, SERUM 1.13 mg/dL (0.70-1.30); POTASSIUM 4.3 mmol/L (3.5-5.1); PROTEIN, TOTAL 6.6 g/dL (6.4-8.2)
--- NOTE | 2024-02-27 06:05 | NUR ---
PT RESTING WITH EYES CLOSED. AWAKENS EASILY. VS AND I&O OBTAINED. IV ABX INFUSING PER ORDER. PT DENIES PAIN. ASSESSMENT COMPLETE. NO FURTHER NEEDS. CALL LIGHT IN REACH.
--- NOTE | 2024-02-27 07:20 | NUR ---
REPORT REC'D FROM LILLY. PT RESTING, NO C/O AT THIS TIME. CALL RAMIREZ IN REACH
--- NOTE | 2024-02-27 07:34 | NUR ---
PATIENT IN BED AT THIS TIME. WELFARE MANAGER WENT INTO PATIENT ROOMS TO DO HOURLY ROUNDS. CALL LIGHT WITHIN REACH, NO FURTHER NEEDS AT THIS TIME.
--- NOTE | 2024-02-27 10:06 | NUR ---
PATIENT IN CHAIR AT THIS TIME. CALL LIGHT WITHIN REACH, NO FURTHER NEEDS AT THIS TIME.
--- NOTE | 2024-02-27 11:06 | NUR ---
PATIENT IN CHAIR AT THIS TIME. ROUTE SALES ASSOCIATE PROVIDED FRESH LINENS. CALL LIGHT WITHIN REACH, NO FURTHER NEEDS AT THIS TIME.
--- NOTE | 2024-02-27 11:35 | NUR ---
PATIENT IN CHAIR AT THIS TIME. CALL LIGHT WITHIN REACH, NO FURTHER NEEDS AT THIS TIME.
--- NOTE | 2024-02-27 11:49 | NUR ---
PT SITTING UP IN BED WITH CALL LIGHT WITHIN REACH. IV FLUSHED AND SALINE LOCKED. NO REQUESTS AT THIS TIME.
--- NOTE | 2024-02-27 13:45 | NUR ---
PT SITTING UP IN CHAIR WITH CALL LIGHT WITHIN REACH, NO REQUESTS AT THIS TIME.
--- NOTE | 2024-02-27 14:31 | NUR ---
PATIENT SITTING IN BED AT THIS TIME. CALL LIGHT WITHIN REACH, NO FURTHER NEEDS AT THIS TIME.
--- NOTE | 2024-02-27 15:54 | NUR ---
PATIET IN BED AT THIS TIME. CALL LIGHT WITHIN REACH, NO FURTHER NEEDS AT THIS TIME.
--- NOTE | 2024-02-27 16:00 | NUR ---
Spoke with Robe. He is wanting to go home. Discussed in report felt he needed 1 more day of IV antibiotics. Encouraged pt to discuss with Dr. Mack. He denies needs and will talk with Doc.
--- NOTE | 2024-02-27 17:04 | NUR ---
PATIENT IN BED AT THIS TIME. CALL LIGHT WITHIN REACH, NO FURTHER NEEDS AT THIS TIME.
--- NOTE | 2024-02-27 18:20 | NUR ---
PATIENT IN BED AT THIS TIME. PREPARED FOODS PRODUCTION TEAM MEMBER CHARTED VITALS AND I&O'S. CALL LIGHT WITHIN REACH, NO FURTHER NEEDS AT THIS TIME.
--- NOTE | 2024-02-27 19:33 | NUR ---
REPORT RECEIVED FROM DAY SHIFT RN. PT LYING IN BED ALERT AND ORIENTED. DENIES NEEDS. WHITE BOARD UPDATED. CALL LIGHT IN REACH.
--- NOTE | 2024-02-27 21:44 | NUR ---
EVENING ASSESSMENT COMPLETE. SCHEDULED MEDS ADMIN PER EMAR. PT REPORTS RIGHT EAR PAIN 07/29. PRN FOR PAIN ADMIN EMAR. VS AND I&O OBTAINED. SLIGHT SWELLING AND REDNESS NOTED TO RIGHT SIDE OF FACE. ICE PACK PROVIDED. PT DENIES QUESTIONS OR CONCERNS. CALL LIGHT IN REACH.
--- NOTE | 2024-02-28 00:33 | NUR ---
PT RESTING IN BED WITH EYES CLOSED. RESPIRATIONS EVEN. IV ABX INFUSING WNL. CALL LIGHT IN REACH.
--- NOTE | 2024-02-28 01:58 | NUR ---
PT IN BED RESTING WITH EYES CLOSED LYING ON LEFT SIDE. RESPIRATIONS EVEN. CALL LIGHT IN REACH.
--- NOTE | 2024-02-28 04:52 | NUR ---
PT IN BED RESTING WITH EYES CLOSED. RESPIRATIONS EVEN. CALL LIGHT IN REACH.
[2024-02-28 05:57] VITALS: BP 112/79
--- NOTE | 2024-02-28 06:19 | NUR ---
VS AND I&O OBTAINED. PT DENIES PAIN OR NAUSEA. IV ABX INFUSING PER ORDER. ASSESSMENT UNCHANGED. PT DENIES NEEDS. CALL LIGHT IN REACH.
[2024-02-28 06:21] VITALS: BP 112/79
[2024-02-28] MEDS ORDERED: CIPROFLOX-DEXA7.5 ML AD (08:05)
[2024-02-28] MEDS ORDERED: BACTRIM DS TAB1 EACH PO (08:06)
[2024-02-28 08:38] VITALS: BP 128/71
--- NOTE | 2024-02-28 08:50 | NUR ---
Spoke with Robe. He is dressed and wanting to leave. Waiting for his for dc. Reviewed IM letter with him and way to appeal if wishes. Pt does not want to appeal and states, "I just want to go home". Pt is pleasant and denies any needs. Plans to return to fire [place] in the next few days.
[2024-02-28 08:53] VITALS: BP 128/71
== END 2024-02-28 09:35 | disposition home or self-care (01) | DRG 153 ==
LOC: ED 16:54 → MS 16:56
PROVIDERS: Emergency Medicine; Family Medicine; ADMIT Student in an Organized Health Care Education/Training Program; ATTEND Student in an Organized Health Care Education/Training Program
DX: H61.001 Unspecified perichondritis of right external ear (principal); L03.211 Cellulitis of face; E87.1 Hypo-osmolality and hyponatremia; H60.91 Unspecified otitis externa, right ear; I25.10 Atherosclerotic heart disease of native coronary artery without angina pectoris; I10 Essential (primary) hypertension; Z87.442 Personal history of urinary calculi; I25.2 Old myocardial infarction; Z95.5 Presence of coronary angioplasty implant and graft; Z98.890 Other specified postprocedural states; Z79.899 Other long term (current) drug therapy; Z79.82 Long term (current) use of aspirin
CPT/HCPCS: 36415; 70487; 71045; 80048; 80053; 81003; 82553; 83605; 83735; 83935; 84300; 85025; 87040; 87077; 93005; 93010; 96366; 96367; 96368; 96372; 96375; 96376; A9270; G0378; J0295; J0744; J0878; J1170; J1650; J2543; J3475; J7030; J7040; Q9967